=== PATIENT | female | born 1950 | race Caucasian/White ===

== ENCOUNTER → 2017-11-10 | Outpatient (CLI) | payer MEDICARE ==
[~2017-11-10] MED LIST: FLEXERIL PO; NORCO 5-325 TA1 EACH PO; PREDNISONE 20 M20 MG PO
== END ==
LOC: M.RAD 11:55
DX: M54.12 Radiculopathy, cervical region (principal)

== ENCOUNTER → 2018-01-23 | Outpatient (CLI) | payer MEDICARE | LOC: M.MRI 13:15 | DX: M75.121 Complete rotator cuff tear or rupture of right shoulder, not specified as traumatic (principal); M19.011 Primary osteoarthritis, right shoulder; M62.511 Muscle wasting and atrophy, not elsewhere classified, right shoulder; M25.711 Osteophyte, right shoulder; M62.89 Other specified disorders of muscle ==